=== PATIENT | male | born 1985 | race Caucasian/White ===

== ENCOUNTER 2024-05-22 18:09 | Emergency (ER) | payer OTHER ==
[2024-05-22 18:26] VITALS: RESP 16; TEMP 98.3; BMI 19.0
[2024-05-22] MEDS: SODIUM CHLORIDE 0.9% 500 ML INFUS.BAG IV ONE (20:30)
[2024-05-22 20:32] VITALS: BP 107/73; PULSE 96
[2024-05-22 20:44] LABS: BASO % 0.3 % (0-2.0); EOS % 0.3 % (0-4.5); HEMATOCRIT 42.6 % (35.4-49); HEMOGLOBIN 14.5 GM/dL (11.7-16.9); LYMPH % 12.8 % (8-40); MCHC 33.9 g/dl (32.0-35.9); MEAN CELL VOLUME 94.4 fl (80-96); MEAN PLT VOLUME 8.6 fl (7.5-11.1); MONO % 5.4 % (3.8-10.2); NEUT % 81.2 % (42.8-82.8); PLATELET COUNT 330 10^3/uL (134-434); RBC 4.52 M/mm3 (4.00-5.60); RDW 13.8 % (11.9-15.9); WHITE BLOOD COUNT 10.3 K/mm3 (4.0-10.0)
[2024-05-22 20:54] LABS: POTASSIUM 4.4 mmol/L (3.5-5.1)
[2024-05-22 20:56] LABS: ALBUMIN 4.1 g/dl (3.4-5.0); BLOOD UREA NITROGEN 13.1 mg/dL (7-18); CALCIUM 9.5 mg/dL (8.5-10.1); MAGNESIUM 2.4 mg/dL (1.8-2.4)
[2024-05-22 21:00] LABS: CREATININE 0.9 mg/dL (0.55-1.3)
[2024-05-22 21:01] LABS: BILIRUBIN,TOTAL 0.6 mg/dL (0.2-1); TOT PROT 7.8 g/dl (6.4-8.2)
== END 2024-05-22 22:14 | disposition home or self-care (01) ==
LOC: JER 18:09
DX: R19.7 Diarrhea, unspecified (principal); R50.9 Fever, unspecified
CPT/HCPCS: 36415; 80053; 82272; 83735; 85025; 87045; 87046; 87186; 87209; 87324; 87449; 99284-25

== ENCOUNTER 2024-05-27 12:47 | Emergency (ER) | payer OTHER ==
[2024-05-27 13:09] VITALS: BP 125/73; RESP 19; TEMP 99.3; BMI 19.8
[2024-05-27] MEDS ORDERED: MEROPENEM 1 GM in DEXTROSE 5%-WATER 100 ML IVPB ONE (13:40)
[2024-05-27 14:42] VITALS: PULSE 96
== END 2024-05-27 14:45 | disposition home or self-care (01) ==
LOC: JER 12:47
DX: A03.0 Shigellosis due to Shigella dysenteriae (principal)
CPT/HCPCS: 99283-25